=== PATIENT | male | born 1975 | race African-American/Black ===

== ENCOUNTER 2018-11-21 23:40 | Emergency (ER) | payer SELFPAY ==
[2018-11-22 00:06] VITALS: BP 116/71; PULSE 65; TEMP 98.7; BMI 24.4
--- NOTE | 2018-11-22 00:23 | PDOC ---
History of Present Illness - General Chief Complaint: Ear Problem Stated Complaint: PAIN LT. EAR Time Seen by Provider: 11/22/18 00:16 - History of Present Illness Initial Comments: 11/22/18 00:17 CHIEF COMPLAINT: ear pain HISTORY OF PRESENT ILLNESS: 43 yo M with no PMH presents to ED with left ear pain. Patient reports that he has been having ear discomfort intermittently for "months" but it went away and yesterday he felt pressure and pain to his left ear. Denies fever, chills, nausea, vomiting. No recent travel or sick contacts. PAST MEDICAL HISTORY: Denies past medical history FAMILY HISTORY: Denies SOCIAL HISTORY: Denies tobacco, alcohol, illicit drug use. SURGICAL HISTORY: Denies ALLERGIES: No known drug allergies REVIEW OF SYSTEMS General/Constitutional: Denies fever or chills. Denies weakness, weight change. HEENT: Denies change in vision. Denies ear pain or discharge. Denies sore throat. Cardiovascular: Denies chest pain or shortness of breath. Respiratory: Denies cough, wheezing, or hemoptysis. Gastrointestinal: Denies nausea, vomiting, diarrhea or constipation. Denies rectal bleeding. Genitourinary: Denies dysuria, frequency, or change in urination. Musculoskeletal: Denies joint or muscle swelling or pain. Denies neck or back pain. Skin and breasts: Denies rash or easy bruising. Neurologic: Denies headache, vertigo, loss of consciousness, or loss of sensation. PHYSICAL EXAM General Appearance: Well-appearing, appropriately dressed. No apparent distress. HEENT: Erythema to L auditory canal. EOMI, PERRLA, normal ENT inspection, normal voice, TMs normal, pharynx normal. No conjunctival pallor. No photophobia, scleral icterus. Neck: Supple. Trachea midline. No tenderness, rigidity, carotid bruit, stridor , lymphadenopathy, or thyromegaly. Respiratory/Chest: Lungs CTAB. No shortness of breath, chest tenderness, respiratory distress, accessory muscle use. No crackles, rales, rhonchi, stridor , wheezing, dullness Cardiovascular: RRR. S1, S2. No JVD, murmur, bradycardia, tachycardia. Vascular Pulses: Dorsalis-Pedis (R): 2+, Dorsalis-Pedis (L): 2+ Gastrointestinal/Abdominal: Normal bowel sounds. Abdomen soft, non-distended. No tenderness or rebound tenderness. No organomegaly, pulsatile mass, guarding , hernia, hepatomegaly, splenomegaly. Lymphatic: No adenopathy, tenderness. Musculoskeletal/Extremities: Normal inspection. FROM of all extremities, normal capillary refill. Pelvis Stable. No CVA tenderness. No tenderness to extremities, pedal edema, swelling, erythema or deformity. Integumentary: Appropriate color, dry, warm. 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 Fully oriented, alert. Appropriate mood/affect. Motor strength 5/5. No appreciable EOM palsy, facial droop or sensory deficit. Past History - Past Medical History Allergies/Adverse Reactions: Allergies Allergy/AdvReac Type Severity Reaction Status Date / Time No Known Allergies Allergy Verified 11/22/18 00:04 Home Medications: Ambulatory Orders Acetaminophen [Tylenol] 650 mg PO PRN 11/22/18 Neomycin/Polymyxin B Sulf/Hc [Yoykdjit-Mbnopzvcs-Yv Ear Susp] 10 ml QID #4 drops.susp 11/22/18 - Suicide/Smoking/Psychosocial Hx Smoking History: Never smoked Have you smoked in the past 12 months: No Information on smoking cessation initiated: No Hx Alcohol Use: No Drug/Substance Use Hx: No *Physical Exam - Vital Signs Last Vital Signs Temp Pulse Resp BP Pulse Ox 98.7 F 65 18 116/71 98 11/22/18 00:05 11/22/18 00:05 11/22/18 00:05 11/22/18 00:05 11/22/18 00:05 Medical Decision Making - Medical Decision Making 11/22/18 00:21 43 yo M with no PMH presents to ED with left ear pain. clinical presentation consistent with otitis externa. corticosporin gtts rx sent to pharm. *DC/Admit/Observation/Transfer Diagnosis at time of Disposition: Otitis externa Qualifiers: Otitis externa type: unspecified type Chronicity: acute Laterality: left Qualified Code(s): H60.502 - Unspecified acute noninfective otitis externa, left ear - Discharge Dispostion Disposition: HOME Condition at time of disposition: Stable Decision to Admit order: No - Prescriptions Prescriptions: Neomycin/Polymyxin B Sulf/Hc [Dtgqecsi-Orrivlghh-Io Ear Susp] 10 ml QID #4 drops.susp - Referrals - Patient Instructions Printed Discharge Instructions: DI for Otitis Externa - Post Discharge Activity
== END 2018-11-22 00:53 | disposition home or self-care (01) ==
LOC: JER 23:40
DX: H60.502 Unspecified acute noninfective otitis externa, left ear (principal)
CPT/HCPCS: 99282-25